=== PATIENT | female | born 1995 | race Caucasian/White ===

== ENCOUNTER 2024-06-07 15:54 | Emergency (ER) | payer MEDICAID ==
[~2024-06-07] VITALS: Ht 165.1 cm; Wt 61.2 kg
[2024-06-07 16:15] VITALS: PULSE 87; RESP 18; O2SAT 97
[2024-06-07] MEDS: IBUPROFEN 800 MG TABLET PO ONE (16:30)
[2024-06-07] MEDS: ONDANSETRON 4 MG ODT TAB PO ONE (16:31)
[2024-06-07] MEDS: NACL 0.9% 1,000 ML IV ONE (16:43)
[2024-06-07 16:45] LABS: BASOPHILS % (AUTO) 0.8 % (0.0-2.0); EOSINOPHILS % (AUTO) 0.1 % (0.0-4.0); HEMATOCRIT 36.1 % (36-48); HEMOGLOBIN 12.2 g/dL (12.0-16.0); LYMPHOCYTES # (AUTO) 0.4 K/uL (1.0-5.5); LYMPHOCYTES % (AUTO) 8.2 % (20.5-51.5); MEAN CORPUSCULAR HEMOGLOBIN 28 pg (27-31); MEAN CORPUSCULAR HGB CONC 34 % (32-36); MEAN CORPUSCULAR VOLUME 83 fL (79.0-98.0); MONOCYTES # (AUTO) 0.3 K/uL (0.0-1.0); NEUTROPHILS # (AUTO) 4.4 K/uL (1.8-7.7); NEUTROPHILS % (AUTO) 84.9 % (40.0-70.0); PLATELET COUNT (AUTO) 210 K/uL (130-430); RED BLOOD CELL COUNT(AUTO) 4.35 MIL/uL (4.2-6.2); RED CELL DISTRIBUTION WIDTH 13.3 % (9.0-15.0); WHITE BLOOD COUNT (AUTO) 5.2 K/uL (4.8-10.8)
[2024-06-07 16:57] LABS: INR 1.1 (0.8-1.2); PROTHROMBIN TIME 11.9 SECS (9.5-12.5)
[2024-06-07 17:00] LABS: ALANINE AMINOTRANSFERASE 27 U/L (12-78); ALBUMIN 3.4 g/dL (3.4-4.8); ANION GAP 12 (5-15); ASPARTATE AMINOTRANSFERASE 19 U/L (10-37); CALCIUM 8.6 mg/dL (8.4-11.0); CARBON DIOXIDE 24 mmol/L (23-29); CHLORIDE 101 mmol/L (98-107); CREATININE 0.64 mg/dL (0.55-1.30); GFR AFRICAN AMERICAN 140 mL/min (>90); GFR NON AFRICAN-AMERICAN 116 mL/min (>90); GLUCOSE 100 mg/dL (74-106); POTASSIUM 3.3 mmol/L (3.5-5.1); SERUM HCG (QUALITATIVE) NEGATIVE (NEGATIVE); SODIUM SERUM 137 mmol/L (136-145); TOTAL BILIRUBIN 0.8 mg/dL (0.0-1.0); TOTAL PROTEIN, SERUM 7.4 g/dL (6.4-8.3); UREA NITROGEN, BLOOD 13 mg/dL (8-21)
[2024-06-07 17:10] LABS: AMYLASE 51 U/L (0-100); BILIRUBIN,DIRECT 0.2 mg/dL (0.0-0.3); LIPASE 34 U/L (16-77)
[2024-06-07 17:25] LABS: ACETONE, SERUM NEGATIVE (NEGATIVE)
[2024-06-07] MEDS ORDERED: IBUP-1969 PO (17:41)
[2024-06-07] MEDS ORDERED: ONDA-8 TL (17:41)
[2024-06-07 18:49] VITALS: PULSE 87; RESP 18; O2SAT 97
== END 2024-06-07 18:40 | disposition home or self-care (01) ==
LOC: SED 15:54
DX: K52.9 Noninfective gastroenteritis and colitis, unspecified (principal); R10.84 Generalized abdominal pain; M79.10 Myalgia, unspecified site; R11.10 Vomiting, unspecified; Z79.899 Other long term (current) drug therapy
CPT/HCPCS: 99284; 74176; 96360; 80076; 80048; 82009; 82150; 84703; 83690; 85025; 85610; 85730; 36415; 83605; 82397; Q0162; J7030